=== PATIENT | female | born 1995 | race Caucasian/White ===

== ENCOUNTER 2019-11-26 05:00 | Inpatient (IN) | payer OTHER ==
[2019-11-26] MEDS ORDERED: ELECTROLYTE-148 SOLN 1,000 ML IV SCH ×2 (05:45)
[2019-11-26 06:11] VITALS: BMI 31.2
[2019-11-26 06:12] LABS: BASO % 0.2 % (0-2.0); HEMATOCRIT 32.3 % (32.4-45.2); HEMOGLOBIN 10.6 GM/dL (10.7-15.3); LYMPH % 17.1 % (8-40); MCH 27.4 pg (25.7-33.7); MCHC 32.8 g/dl (32.0-36.0); MEAN CELL VOLUME 83.6 fl (80-96); MEAN PLT VOLUME 9.8 fl (7.5-11.1); MONO % 10.4 % (3.8-10.2); NEUT % 71.3 % (42.8-82.8); PLATELET COUNT 226 K/MM3 (134-434); RBC 3.87 M/mm3 (3.60-5.2); RDW 16.7 % (11.6-15.6)
[2019-11-26 06:20] LABS: INR 0.85 (0.83-1.09)
[2019-11-26 06:23] LABS: ACTIVATED PTT 25.2 SECONDS (25.2-36.5)
[2019-11-26 06:43] LABS: BLOOD UREA NITROGEN 11.3 mg/dL (7-18); CALCIUM 8.9 mg/dL (8.5-10.1); CREATININE 0.4 mg/dL (0.55-1.3); POTASSIUM 3.8 mmol/L (3.5-5.1)
[2019-11-26] MEDS ORDERED: PROMETHAZINE HCL 25 MG/1 ML VIAL IVPUSH ONE (07:35)
[2019-11-26] MEDS ORDERED: BUTORPHANOL TARTRATE 1 MG/ML VIAL IVPB ONE (07:35)
[2019-11-26] MEDS ORDERED: BUTORPHANOL TARTRATE 2 MG/ML VIAL ONE (07:36)
[2019-11-26] MEDS ORDERED: PROMETHAZINE HCL 25 MG/1 ML VIAL ONE (07:36)
--- NOTE | 2019-11-26 07:36 | HP ---
Past Medical History - Primary Care Physician PCP:: Sonia Peralta - Admission Chief Complaint: 24 yrs , 39,3/7 wks by dates, 40.1 wks by kirano , previous c/s admitted in labor. onset LP since 4.00 AM. 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 Weeks Gestation by Dates: 39.3 ...EDC by Dates: 11/30/19 ...EDC by Kirano: 11/25/19 (40.1 wks ) Heme/Onc: Yes: Anemia Infectious Disease: No: AIDS, HIV, STD's, Tuberculosis Psych: No: Addictions, Anxiety, Bipolar, Depression, Panic, Psychosis, Schizophrenia, Other Endocrine: No: Diabetes Mellitus, Hypothyroidism - Past Surgical History Past Surgical History: Yes: (04/12/17 in [place]) Hx Myomectomy: No Hx Transabdominal Cerclage: No - Smoking History Smoking history: Never smoked Have you smoked in the past 12 months: No - Alcohol/Substance Use Hx Alcohol Use: No History of Substance Use: reports: None Home Medications - Allergies Allergies/Adverse Reactions: Allergies Allergy/AdvReac Type Severity Reaction Status Date / Time No Known Allergies Allergy Verified 11/26/19 05:44 - Home Medications Home Medications: Ambulatory Orders Pnv No.95/Ferrous Fum/Folic AC [ Formula] 1 each PO DAILY 11/26/19 Physical Exam - Maternity Vital Signs: Vital Signs Temperature 98.2 F 11/26/19 05:43 Pulse Rate 70 11/26/19 07:00 Respiratory Rate 20 11/26/19 07:00 Blood Pressure 116/61 11/26/19 07:00 O2 Sat by Pulse Oximetry (%) 100 11/26/19 05:30 Selected Entries 11/26/19 11/26/19 05:30 05:43 Temperature 98.2 F 98.2 F Pulse Rate 100 H 100 H Blood Pressure 117/67 117/67 Weight 188 lb Constitutional: Yes: Well Nourished, Severe Distress, Obese Eyes: Yes: WNL HENT: Yes: WNL, Normocephalic Neck: Yes: WNL Cardiovascular: Yes: WNL Lungs: Clear to auscultation Breast(s): Yes: Other (not examined) - Abdominal Exam/OB Fundal Height: 38 Number of Fetuses: Single Presentation: Vertex Contractions: Yes Regularity: Regular (2-4 min) Monitor Mode: External Heart Rate (range): 145 Heart Rate Location: [facility] Category: I Accelerations: Non-Uniform Decelerations: None - Vaginal Exam/OB Vaginal Bleeding: Bloody Show Speculum Exam: No Dilatation (cm): 6-7 Effacement (%): 90 Amniotic Membrane Status: Ruptured (AROM at 7.10 AM) Amniotic Fluid: Yes: Clear Presentation: Vertex/Position Station: -1 - Physical Exam Musculoskeletal: Yes: WNL Extremities: Yes: WNL. No: Calf Tenderness Edema: LLE: 1+, RLE: 1+ Integumentary: Yes: Incision (old pfannensteil scar) Deep Tendon Reflex Grade: Normal +2 ...Motor Strength: WNL Psychiatric: Yes: WNL, Alert, Oriented - Labs Lab Results: CBC, BMP 11/26/19 05:50 11/26/19 05:50 Laboratory Tests 11/26/19 11/26/19 11/26/19 05:50 05:50 05:50 PT with INR 10.00 INR 0.85 PTT (Actin FS) 25.2 Syphilis Serology Non-reactive Blood Type O POSITIVE Antibody Screen Negative Hemorrhage Risk Assessment - Risk Factors Medium Risk Factors: Yes: Prior , uterine surgery,or multiple laparotomies Risk Score: 1 Risk Level: Medium Risk Problem List - Problems (1) 40 weeks gestation of Code(s): Z3A.40 - 40 WEEKS GESTATION OF (2) Previous section Code(s): Z98.891 - HISTORY OF UTERINE SCAR FROM PREVIOUS SURGERY (3) Labor established Code(s): IJU4454 - (4) Obesity (BMI 30.0-34.9) Code(s): E66.9 - OBESITY, UNSPECIFIED Assessment/Plan 24 yrs , previous c/s 40.1 wks by sono & 39.3 wks by dates , gbs neg in active labor Plan : stadol +phenrgan for pain TOLAC pt explained about risk of rupture, hemorrgage, distress, etc , she is aware of it , she is willing to continue TOLAC . 7.40 AM 8-9cm/ 100%/vx 0 station / fhr 140, / uc 2-3 min requests for pain meds . given 8.05 AM 10cm/100%/vx +1/+2 /FHR 130-140, early decel cat, variable cat-2 / uc 2-3 min pt pushing , pt encouraged not to push, await natural descent .
[2019-11-26] MEDS ORDERED: OXYTOCIN 20 UNITS in 0.9% NS 20 UNIT/1,000 ML INFUS.BAG IV ONE ×2 (08:05→10:36)
[2019-11-26] MEDS ORDERED: LIDOCAINE HCL 1% PRESERVATIVE FREE - 30ML VIAL ONE (08:05)
[2019-11-26] MEDS ORDERED: OXYTOCIN 30 UNITS in 0.9% NS 30 UNIT/500 ML INFUS.BAG IVPB ONE (08:44)
[2019-11-26 09:46] LABS: CORD PCO2 56.8 mmHg (30-78); CORD pH 7.186 (7.14-7.44)
[2019-11-26 09:48] LABS: CORD BASE EXCESS -6.4 mmol/L (0-2); CORD HCO3 20.4 mmHg (20-29); CORD PCO2 45.2 mmHg (30-78); CORD pH 7.273 (7.14-7.44)
[2019-11-26] MEDS ORDERED: BISACODYL 10 MG SUPP.RECT RC PRN (10:03)
[2019-11-26] MEDS ORDERED: WITCH HAZEL 50% (TUCKS) 40 PAD/JAR PAD TP PRN (10:03)
[2019-11-26] MEDS ORDERED: BENZOCAINE 20% 57 GM BOTTLE TP PRN (10:03)
[2019-11-26] MEDS ORDERED: oxyCODONE HCL 5 MG TABLET PO PRN (10:03)
[2019-11-26] MEDS ORDERED: METHYLERGONOVINE MALEATE 0.2 MG/1 ML AMP IM PRN (10:03)
[2019-11-26] MEDS ORDERED: BENZOCAINE 28 GM HEMORRHOIDAL OINTMENT TP PRN (10:03)
--- NOTE | 2019-11-26 10:13 | PN ---
Delivery - Delivery Vaginal Delivery: V-Debbie (pt delievered vx, reta position , immediate oral & nasal suction was done, shoulders deievered without difficulty .cord segment for cord gas & cord blood collected , trivascular cord. placenta & membranes delievered completely without difficulty . median epi was given & was sutures in layers .MEU done ut intact % empty. 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
[2019-11-26] MEDS ORDERED: OXYTOCIN 20 UNITS in 0.9% NS 20 UNIT/1,000 ML INFUS.BAG IV SCH (10:15)
[2019-11-26] MEDS: IBUPROFEN 600 MG TABLET (FP) PO PRN ×2 (12:57→19:57)
[2019-11-26] MEDS: ACETAMINOPHEN 325 MG TABLET (FP) PO PRN ×2 (12:57→19:56)
[2019-11-26] MEDS: FERROUS SO4 325 MG TABLET (FP) PO SCH (18:28)
--- NOTE | 2019-11-27 08:36 | DS ---
Physical Examination Vital Signs: Vital Signs Temperature 97.9 F 11/26/19 20:05 Pulse Rate 97 H 11/26/19 20:05 Respiratory Rate 20 11/26/19 20:05 Blood Pressure 103/66 11/26/19 20:05 O2 Sat by Pulse Oximetry (%) 100 11/26/19 05:30 Findings/Remarks: Patient is doing well, breast feeding, tolerating Po, lochia decreased, desiring circumcision. Constitutional: Yes: No Distress Eyes: Yes: WNL HENT: Yes: Atraumatic Neck: Yes: Supple Cardiovascular: Yes: Regular Rate and Rhythm Respiratory: Yes: Regular Gastrointestinal: Yes: WNL ...Rectal Exam: Yes: Other Renal/: Yes: Other Musculoskeletal: Yes: Other Extremities: Yes: Other Edema: Yes Edema: LLE: Trace, RLE: Trace Integumentary: Yes: WNL Neurological: Yes: Alert, Oriented ...Motor Strength: WNL Psychiatric: Yes: Alert, Oriented Labs: CBC, BMP 11/26/19 05:50 11/26/19 05:50 Discharge Summary Problems reviewed: Yes Reason For Visit: LABOR ADMIT Current Active Problems 40 weeks gestation of (Acute) Labor established (Acute) Obesity (BMI 30.0-34.9) (Acute) Previous section (Acute) , delivered, current hospitalization (Acute) Procedures: Principal: Hospital Course: uncomplicated recovery Plan of Treatment: follow up at health center in 3 weeks for early Condition: Stable - Instructions Diet, Activity, Other Instructions: Post Instructions DIET: Continue good diet high in protein, calcium, and iron rich foods. Drink at least eight (8) glasses of water daily in addition to other fluids. _ct Regular diet MEDICATIONS: Continue vitamins and iron as previously directed. Motrin and Tylenol may be taken for minor discomfort. ACTIVITY: Mild to moderate exercise may be started in two (2) weeks. Take frequent rest periods. Resume normal activity after six (6) week check up. WOUND CARE OF OPERATIVE SITE: Continue use of perineal bottle until vaginal discharge stops. Keep area clean. Shower daily. Keep abdominal wound dry. Report any drainage or redness to physician. Tub baths, tampons and douches are not permitted for 6 weeks.. SITZ BATHS TID PRN ct Breast feeding & or Bottle feeding BREAST CARE: (For those that are not ): If engorgement occurs: Wear tight fitting bra. Take Tylenol or Motrin for pain. Apply cold packs (ice in bags to each breast ) FAMILY PLANNING: There are many control alternatives to pursue and they should be discussed at your first office visit. You may resume sexual activity after your six (6) week check up. (Remember, breast feeding is not a contraceptive) NEXT PHYSICIAN APPOINTMENT: Be certain to call for a three (3) week appointment, unless otherwise directed. Call Clinic or got to Emergency Dept if you have any of the following: Heavy vaginal bleeding Painful urination Leg pain Unusual odor noted to vaginal bleeding High fever Red streaking noted on breast Referrals: Sonia Peralta MD [Staff Physician] - Disposition: HOME - Home Medications Comprehensive Discharge Medication List: Ambulatory Orders Acetaminophen [Tylenol .Regular Strength -] 650 mg PO Q3H PRN tablet 11/26/19 Benzocaine [Americaine 20% Chrisman -] 1 spray TP PRN PRN bottle 11/26/19 Ferrous Sulfate [Feosol] 325 mg PO BIDWM #60 tab 11/26/19 Ibuprofen [Motrin -] 600 mg PO Q4H PRN #20 tablet 11/26/19 Pnv No.95/Ferrous Fum/Folic AC [ Formula Tablet] 1 each PO DAILY 11/26/19 Vitamins (Sjr) - 1 tab PO DAILY #30 tablet 11/26/19 Sennosides/Docusate Sodium [Pericolace -] 2 tablet PO HS PRN #30 tablet 11/26/19 Witch Shavon 50% (Tucks) [Tucks Pads -] 1 pad TP PRN PRN pad 11/26/19
[2019-11-27 09:03] LABS: BASO % 0.4 % (0-2.0); EOS % 0.7 % (0-4.5); HEMATOCRIT 27.4 % (32.4-45.2); LYMPH % 22.1 % (8-40); MCH 27.6 pg (25.7-33.7); MCHC 32.9 g/dl (32.0-36.0); MEAN CELL VOLUME 83.9 fl (80-96); MEAN PLT VOLUME 10.3 fl (7.5-11.1); MONO % 7.4 % (3.8-10.2); NEUT % 69.4 % (42.8-82.8); PLATELET COUNT 198 K/MM3 (134-434); RBC 3.27 M/mm3 (3.60-5.2); RDW 17.4 % (11.6-15.6); WHITE BLOOD COUNT 9.2 K/mm3 (4.0-10.0)
--- NOTE | 2019-11-27 09:27 | PN ---
Progress Note (short form) - Note Progress Note: Patient declined circumcision at this time and would like to wait until following up with peds. Father does not have circumcision, but mother is considering due to her family history. All risks discussed and she would like to wait to make her determination. She was informed that she would need to see specialist to have it done.
[2019-11-27] MEDS ORDERED: PRENATAL VITAMINS W/ FOLIC ACID TABLET (FP) PO SCH (10:00)
[2019-11-27] MEDS: FERROUS SO4 325 MG TABLET (FP) PO SCH (10:13)
[2019-11-27 15:34] VITALS: BP 100/69; PULSE 90; TEMP 97.8
[2019-11-27] MEDS ORDERED: SENNOSIDES/DOCUSATE COMBO (SENNA PLUS) TABLET (UD) PO PRN (22:00)
== END 2019-11-27 13:35 | disposition home or self-care (01) | DRG 560 ==
LOC: JLDR 05:00 → J3W 10:55
PROVIDERS: ADMIT Obstetrics & Gynecology; ATTEND Obstetrics & Gynecology
PROC: 10907ZC Drainage of Amniotic Fluid, Therapeutic from Products of Conception, Via Natural or Artificial Opening (ICD-10-PCS; principal; 2019-11-26)
PROC: 10E0XZZ Delivery of Products of Conception, External Approach (ICD-10-PCS; 2019-11-26)
PROC: 0W8NXZZ Division of Female Perineum, External Approach (ICD-10-PCS; 2019-11-26)
DX: O48.0 Post-term pregnancy (principal); O99.02 Anemia complicating childbirth; D64.9 Anemia, unspecified; O34.211 Maternal care for low transverse scar from previous cesarean delivery; Z3A.40 40 weeks gestation of pregnancy; Z37.0 Single live birth; O99.214 Obesity complicating childbirth; E66.9 Obesity, unspecified
CPT/HCPCS: 36415; 36600; 59409; 80048; 82803; 85025; 85610; 85730; 86780; 86850; 86900; 86901; U0003